=== PATIENT | male | born 2000 | race Caucasian/White ===

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

== ENCOUNTER 2023-12-06 22:56 | Emergency (ER) | payer SELFPAY ==
[~2023-12-06] VITALS: Ht 172.7 cm; Wt 95.7 kg
[~2023-12-06 22:56] MED LIST: ONDA-188 SL
[2023-12-06 23:20] VITALS: BP 122/70; PULSE 68; RESP 18; TEMP 98.4; O2SAT 97
== END 2023-12-07 02:54 | disposition left against medical advice (07) ==
LOC: MED 22:56
DX: L02.01 Cutaneous abscess of face (principal); R50.9 Fever, unspecified; Z53.21 Procedure and treatment not carried out due to patient leaving prior to being seen by health care provider